=== PATIENT | female | born 1935 | race Caucasian/White ===

== ENCOUNTER 2021-04-06 14:55 | Inpatient (IN) | payer BC ==
[~2021-04-06] VITALS: Ht 172.7 cm; Wt 59.9 kg
[2021-04-06] MEDS ORDERED: SODIUM CHLORIDE 0.9% 1,000 ML IV ONE (16:45)
[2021-04-06] MEDS ORDERED: LORAZEPAM 2MG/ML CPJ IV ONE (17:00)
[2021-04-06 17:06] LABS: BASOPHILS % 0.7 % (0.0-2.0); EOSINOPHILS % 2.4 % (0.0-5.0); HEMATOCRIT. 39.4 % (36.0-48.0); MEAN CORPUSCULAR VOLUME 93.8 fL (81.0-99.0); MEAN PLATELET VOLUME 8.2 fl (7.4-10.4); MONOCYTES % 6.4 % (2.0-8.0); NEUTROPHILS % 71.5 % (40.0-76.0); PLATELET 244 x1000/uL (130-400); RED CELL DISTRIBUTION WIDTH 14.4 % (11.6-14.6)
[2021-04-06 17:11] LABS: CHLORIDE 110 mEq/L (98-107)
[2021-04-06] MEDS ORDERED: DOCUSATE SODIUM 100MG CAPSULE PO PRN (20:15)
[2021-04-06] MEDS ORDERED: ONDANSETRON HCL 4MG/2ML INJ IV PRN (20:15)
[2021-04-06] MEDS ORDERED: ACETAMINOPHEN 650MG SUPP PR PRN ×2 (20:15)
[2021-04-06] MEDS ORDERED: GUAIFENESIN 200MG/10ML SUGAR FREE UDC PO PRN (20:15)
[2021-04-06] MEDS ORDERED: MAGNESIUM/ALUMINUM HYDROXIDE/SIMETHICONE 30ML UDC PO PRN (20:15)
[2021-04-06] MEDS ORDERED: DIPHENHYDRAMINE 50MG/ML VIAL IV PRN (20:15)
[2021-04-06] MEDS ORDERED: ACETAMINOPHEN 325MG TABLET PO PRN ×2 (20:15)
[2021-04-06] MEDS ORDERED: IPRATROPIUM/ALBUTEROL 0.5-3(2.5)MG/3ML NEB HHN PRN (20:15)
[2021-04-07] VITALS (7 sets, daily range): BP systolic 119–179; BP diastolic 70–97
[2021-04-07] MEDS: HYDRALAZINE 20MG/ML VIAL IV PRN (01:33)
[2021-04-07] MEDS: CLONIDINE HCL 0.2MG/24HR PATCH TD SCH (03:57)
[2021-04-07 06:41] LABS: CHLORIDE 113 mEq/L (98-107)
[2021-04-07 06:48] LABS: LDL CHOLESTEROL 86 mg/dL (5-100)
[2021-04-07 06:50] LABS: CREATINE KINASE 146 IU/L (26-192); T4 FREE 1.25 ng/dL (0.76-1.46)
[2021-04-07 06:52] LABS: BASOPHILS % 0.3 % (0.0-2.0); HEMATOCRIT. 37.8 % (36.0-48.0); HEMOGLOBIN. 12.2 g/dL (12.0-16.0); LYMPHOCYTES % 19.1 % (20.0-50.0); MEAN CORPUSCULAR HEMOGLOBIN 30.9 pg (28.0-32.0); MEAN CORPUSCULAR VOLUME 95.5 fL (81.0-99.0); MEAN PLATELET VOLUME 8.2 fl (7.4-10.4); MONOCYTES % 6.2 % (2.0-8.0); NEUTROPHILS % 71.4 % (40.0-76.0); PLATELET 249 x1000/uL (130-400); RED BLOOD CELL COUNT 3.96 mill/uL (4.2-5.4); RED CELL DISTRIBUTION WIDTH 14.5 % (11.6-14.6)
[2021-04-07 06:53] LABS: HDL CHOLESTEROL 63 mg/dL (40-59)
[2021-04-07] MEDS ORDERED: CLONIDINE HCL 0.1MG/24HR PATCH TD SCH (09:00)
[2021-04-07] MEDS ORDERED: ESTR0.6264 VG (17:29)
[2021-04-07] MEDS ORDERED: OMEG-34 MT (17:29)
[2021-04-07] MEDS ORDERED: ASPI-1497 PO (17:29)
[2021-04-07] MEDS ORDERED: ACET160S2 PO (17:29)
[2021-04-07] MEDS ORDERED: LATA7.5D OP (17:58)
[2021-04-07] MEDS ORDERED: DORZ10DR8 EACHEYE (17:58)
[2021-04-07] MEDS ORDERED: AZOPT EACHEYE (17:58)
[2021-04-07] MEDS ORDERED: LIFI1DRO3 LEFTEYE (17:59)
[2021-04-07] MEDS ORDERED: BUDE6.9H INH (18:06)
[2021-04-07] MEDS ORDERED: INSU100I28 SQ (18:06)
[2021-04-07] MEDS ORDERED: MIDO2.5T MT (18:06)
[2021-04-07] MEDS ORDERED: TOPUD PO (18:06)
[2021-04-07] MEDS ORDERED: LEVE250T2 MT (18:06)
[2021-04-07] MEDS ORDERED: LOSA50TA41 MT (18:06)
[2021-04-07] MEDS ORDERED: THIA50TA12 MT (18:06)
[2021-04-07] MEDS: SODIUM CHLORIDE 0.45% 1,000 ML IV SCH (18:18)
[2021-04-07] MEDS: RISPERIDONE 0.5MG TABLET PO SCH (18:18)
[2021-04-08] VITALS: BP 144/76
[2021-04-08 04:00] VITALS: BP 152/72
[2021-04-08 08:00] VITALS: BP 145/88
[2021-04-08] MEDS: RISPERIDONE 0.5MG TABLET PO SCH ×2 (09:29→17:27)
[2021-04-08 12:00] VITALS: BP 131/71
[2021-04-08] MEDS ORDERED: RISPERIDONE 0.5MG TABLET PO SCH (12:45)
[2021-04-08] MEDS: SODIUM CHLORIDE 0.45% 1,000 ML IV SCH (15:57)
[2021-04-08 16:00] VITALS: BP 128/74
[2021-04-08] MEDS: MIDODRINE HCL 2.5MG TABLET PO SCH (17:00)
[2021-04-08] MEDS: DORZOLAMIDE 2% OPHTH 10 ML BOTTLE EACHEYE SCH (17:27)
[2021-04-08 20:00] VITALS: BP 157/93
[2021-04-08] MEDS: LEVETIRACETAM 250MG TABLET PO SCH (20:29)
[2021-04-09] VITALS (7 sets, daily range): BP systolic 122–180; BP diastolic 69–97
[2021-04-09] MEDS: CLONIDINE 0.1MG TABLET PO PRN (05:53)
[2021-04-09] MEDS ORDERED: ASPIRIN 81MG EC TABLET PO SCH (09:00)
[2021-04-09] MEDS: RISPERIDONE 0.5MG TABLET PO SCH (09:36)
[2021-04-09] MEDS: LEVETIRACETAM 250MG TABLET PO SCH ×2 (09:36→20:59)
[2021-04-09] MEDS: MIDODRINE HCL 2.5MG TABLET PO SCH ×3 (09:37→18:29)
[2021-04-09] MEDS: LOSARTAN POTASSIUM 50 MG TABLET PO SCH (09:38)
[2021-04-09] MEDS: DORZOLAMIDE 2% OPHTH 10 ML BOTTLE EACHEYE SCH ×3 (09:39→18:31)
[2021-04-09] MEDS: SODIUM CHLORIDE 0.45% 1,000 ML IV SCH (09:40)
[2021-04-09] MEDS: PANTOPRAZOLE SODIUM 40 MG/VIAL IV SCH (21:00)
[2021-04-10] VITALS: BP 121/70
[2021-04-10 04:00] VITALS: BP 111/59
[2021-04-10 06:30] LABS: PROTHROMBIN TIME 10.9 sec (9.6-11.0)
[2021-04-10 06:33] LABS: CHLORIDE 107 mEq/L (98-107)
[2021-04-10 06:53] LABS: BASOPHILS % 0.5 % (0.0-2.0); EOSINOPHILS % 3.7 % (0.0-5.0); HEMATOCRIT. 32.2 % (36.0-48.0); HEMOGLOBIN. 10.7 g/dL (12.0-16.0); LYMPHOCYTES % 13.4 % (20.0-50.0); MEAN CORPUSCULAR HEMOGLOBIN 31.4 pg (28.0-32.0); MEAN CORPUSCULAR VOLUME 94.3 fL (81.0-99.0); MEAN PLATELET VOLUME 8.4 fl (7.4-10.4); NEUTROPHILS % 74.4 % (40.0-76.0); PLATELET 172 x1000/uL (130-400); RED BLOOD CELL COUNT 3.41 mill/uL (4.2-5.4); RED CELL DISTRIBUTION WIDTH 14.1 % (11.6-14.6)
[2021-04-10 08:00] VITALS: BP 117/68
[2021-04-10] MEDS: LEVETIRACETAM 250MG TABLET PO SCH ×2 (09:05→21:37)
[2021-04-10] MEDS: LOSARTAN POTASSIUM 50 MG TABLET PO SCH (09:05)
[2021-04-10] MEDS: MIDODRINE HCL 2.5MG TABLET PO SCH ×3 (09:06→18:28)
[2021-04-10] MEDS: PANTOPRAZOLE SODIUM 40 MG/VIAL IV SCH ×2 (09:06→20:43)
[2021-04-10] MEDS: DORZOLAMIDE 2% OPHTH 10 ML BOTTLE EACHEYE SCH ×2 (09:07→13:00)
[2021-04-10] MEDS ORDERED: CEFAZOLIN 1000MG PREMIX 50 ML IV SCH (11:00)
[2021-04-10] MEDS ORDERED: FENTANYL CITRATE/PF 50MCG/ML 2ML VIAL ONE (11:03)
[2021-04-10] MEDS ORDERED: MIDAZOLAM HCL 5 MG/5 ML VIAL ONE (11:03)
[2021-04-10] MEDS ORDERED: MIDAZOLAM HCL 2 MG/2 ML VIAL IV PRN (11:41)
[2021-04-10 12:00] VITALS: BP_SYST 118; BP_SYST 126; BP_DIAS 64; BP_DIAS 69
[2021-04-10 16:00] VITALS: BP 122/69
[2021-04-10 20:00] VITALS: BP 130/89
[2021-04-11] VITALS (7 sets, daily range): BP systolic 126–152; BP diastolic 78–91
[2021-04-11] MEDS: METOCLOPRAMIDE HCL 10MG/2ML VIAL IV SCH ×4 (01:14→19:44)
[2021-04-11] MEDS: LEVETIRACETAM 250MG TABLET PO SCH ×2 (09:54→21:30)
[2021-04-11] MEDS: PANTOPRAZOLE SODIUM 40 MG/VIAL IV SCH ×2 (09:54→21:29)
[2021-04-11] MEDS: MIDODRINE HCL 2.5MG TABLET PO SCH ×3 (09:55→20:03)
[2021-04-11] MEDS: LOSARTAN POTASSIUM 50 MG TABLET PO SCH (09:55)
[2021-04-11] MEDS: DORZOLAMIDE 2% OPHTH 10 ML BOTTLE EACHEYE SCH ×2 (17:49→20:03)
[2021-04-11] MEDS: SODIUM CHLORIDE 0.45% 1,000 ML IV SCH ×2 (17:50→21:00)
[2021-04-12 04:00] VITALS: BP 124/74
[2021-04-12] MEDS: METOCLOPRAMIDE HCL 10MG/2ML VIAL IV SCH ×4 (06:55→18:17)
[2021-04-12 08:42] VITALS: BP 108/67
[2021-04-12] MEDS: LOSARTAN POTASSIUM 50 MG TABLET PO SCH (08:47)
[2021-04-12] MEDS: PANTOPRAZOLE SODIUM 40 MG/VIAL IV SCH ×2 (09:42→21:37)
[2021-04-12] MEDS: LEVETIRACETAM 250MG TABLET PO SCH ×2 (09:43→21:37)
[2021-04-12] MEDS: MIDODRINE HCL 2.5MG TABLET PO SCH ×3 (09:43→18:06)
[2021-04-12] MEDS: DORZOLAMIDE 2% OPHTH 10 ML BOTTLE EACHEYE SCH ×3 (09:47→18:07)
[2021-04-12 12:00] VITALS: BP 117/74
[2021-04-12 16:31] VITALS: BP 125/69
[2021-04-12] MEDS: SODIUM CHLORIDE 0.45% 1,000 ML IV SCH (18:07)
[2021-04-12 20:00] VITALS: BP 136/90
[2021-04-13] VITALS: BP 129/85
[2021-04-13 04:00] VITALS: BP 126/76
[2021-04-13 08:00] VITALS: BP 110/77
[2021-04-13] MEDS: MIDODRINE HCL 2.5MG TABLET PO SCH ×3 (08:49→16:48)
[2021-04-13] MEDS: DORZOLAMIDE 2% OPHTH 10 ML BOTTLE EACHEYE SCH ×3 (08:49→16:49)
[2021-04-13] MEDS: LEVETIRACETAM 250MG TABLET PO SCH ×2 (08:49→21:03)
[2021-04-13] MEDS: LOSARTAN POTASSIUM 50 MG TABLET PO SCH (08:49)
[2021-04-13] MEDS: FAMOTIDINE 20MG/2ML VIAL IV SCH (08:50)
[2021-04-13 12:00] VITALS: BP 131/74
[2021-04-13] MEDS: SODIUM CHLORIDE 0.45% 1,000 ML IV SCH (12:44)
[2021-04-13 16:00] VITALS: BP 128/75
[2021-04-13 20:00] VITALS: BP 117/79
[2021-04-14] VITALS: BP 122/64
[2021-04-14 04:00] VITALS: BP 133/75
[2021-04-14 08:00] VITALS: BP 121/72
[2021-04-14] MEDS: DORZOLAMIDE 2% OPHTH 10 ML BOTTLE EACHEYE SCH ×3 (09:02→16:55)
[2021-04-14] MEDS: MIDODRINE HCL 2.5MG TABLET PO SCH ×3 (09:03→16:55)
[2021-04-14] MEDS: SODIUM CHLORIDE 0.45% 1,000 ML IV SCH (09:03)
[2021-04-14] MEDS: FAMOTIDINE 20MG/2ML VIAL IV SCH (09:03)
[2021-04-14] MEDS: LEVETIRACETAM 250MG TABLET PO SCH ×2 (09:03→21:09)
[2021-04-14] MEDS: LOSARTAN POTASSIUM 50 MG TABLET PO SCH (09:03)
[2021-04-14] MEDS: CLONIDINE HCL 0.2MG/24HR PATCH TD SCH (09:04)
[2021-04-14 12:00] VITALS: BP 124/70
[2021-04-14 16:00] VITALS: BP 120/68
[2021-04-14 20:00] VITALS: BP 116/63
[2021-04-15] VITALS: BP 129/73
[2021-04-15 04:00] VITALS: BP 133/83
[2021-04-15] MEDS: SODIUM CHLORIDE 0.45% 1,000 ML IV SCH (04:52)
[2021-04-15 08:00] VITALS: BP 138/79
[2021-04-15] MEDS: LOSARTAN POTASSIUM 50 MG TABLET PO SCH (10:05)
[2021-04-15] MEDS: LEVETIRACETAM 250MG TABLET PO SCH ×2 (10:05→21:38)
[2021-04-15] MEDS: FAMOTIDINE 20MG TABLET PO SCH (10:05)
[2021-04-15] MEDS: MIDODRINE HCL 2.5MG TABLET PO SCH ×2 (10:05→15:26)
[2021-04-15 12:00] VITALS: BP 127/80
[2021-04-15 16:00] VITALS: BP 130/76
[2021-04-15 20:00] VITALS: BP 164/71
[2021-04-15] MEDS: HYDRALAZINE 20MG/ML VIAL IV PRN (21:38)
[2021-04-16] VITALS: BP 123/71
[2021-04-16] MEDS: SODIUM CHLORIDE 0.45% 1,000 ML IV SCH ×2 (03:08→16:15)
[2021-04-16 04:00] VITALS: BP 148/84
[2021-04-16] MEDS: LOSARTAN POTASSIUM 50 MG TABLET PO SCH (09:29)
[2021-04-16] MEDS: LEVETIRACETAM 250MG TABLET PO SCH ×2 (09:29→20:45)
[2021-04-16] MEDS: FAMOTIDINE 20MG TABLET PO SCH (09:30)
[2021-04-16 20:00] VITALS: BP 129/83
[2021-04-17] VITALS: BP 112/64
[2021-04-17 04:00] VITALS: BP 107/62
[2021-04-17 08:00] VITALS: BP 113/56
[2021-04-17] MEDS: FAMOTIDINE 20MG TABLET PO SCH (09:04)
[2021-04-17] MEDS: LOSARTAN POTASSIUM 50 MG TABLET PO SCH (09:04)
[2021-04-17] MEDS: LEVETIRACETAM 250MG TABLET PO SCH ×2 (09:04→21:15)
[2021-04-17 12:00] VITALS: BP 129/70
[2021-04-17 16:00] VITALS: BP 140/64
[2021-04-17] MEDS: SODIUM CHLORIDE 0.45% 1,000 ML IV SCH (17:09)
[2021-04-17 17:54] LABS: BASOPHILS % 0.5 % (0.0-2.0); EOSINOPHILS % 5.9 % (0.0-5.0); HEMATOCRIT. 32.3 % (36.0-48.0); MEAN CORPUSCULAR HEMOGLOBIN 31.9 pg (28.0-32.0); MEAN CORPUSCULAR VOLUME 93.4 fL (81.0-99.0); MEAN PLATELET VOLUME 7.7 fl (7.4-10.4); MONOCYTES % 14.4 % (2.0-8.0); NEUTROPHILS % 60.2 % (40.0-76.0); PLATELET 230 x1000/uL (130-400); RED BLOOD CELL COUNT 3.45 mill/uL (4.2-5.4); RED CELL DISTRIBUTION WIDTH 14.5 % (11.6-14.6)
[2021-04-17 18:06] LABS: CHLORIDE 102 mEq/L (98-107)
[2021-04-17 20:00] VITALS: BP 134/80
[2021-04-18 04:00] VITALS: BP 112/62
[2021-04-18 08:00] VITALS: BP 122/66
[2021-04-18] MEDS: FAMOTIDINE 20MG TABLET PO SCH (08:46)
[2021-04-18] MEDS: MIDODRINE HCL 2.5MG TABLET PO SCH ×3 (08:46→17:04)
[2021-04-18] MEDS: LOSARTAN POTASSIUM 50 MG TABLET PO SCH (08:46)
[2021-04-18] MEDS: DORZOLAMIDE 2% OPHTH 10 ML BOTTLE EACHEYE SCH ×3 (08:46→17:04)
[2021-04-18] MEDS: LEVETIRACETAM 250MG TABLET PO SCH ×2 (08:47→20:44)
[2021-04-18 12:00] VITALS: BP 118/85
[2021-04-18] MEDS: SODIUM CHLORIDE 0.45% 1,000 ML IV SCH (12:54)
[2021-04-18 16:00] VITALS: BP 147/84
[2021-04-18 20:00] VITALS: BP 122/68
[2021-04-19] VITALS: BP 114/58
[2021-04-19 04:00] VITALS: BP 119/65
[2021-04-19 08:00] VITALS: BP 99/72
[2021-04-19] MEDS: LOSARTAN POTASSIUM 50 MG TABLET PO SCH (08:34)
[2021-04-19] MEDS: FAMOTIDINE 20MG TABLET PO SCH (08:49)
[2021-04-19] MEDS: MIDODRINE HCL 2.5MG TABLET PO SCH ×3 (08:49→18:41)
[2021-04-19] MEDS: LEVETIRACETAM 250MG TABLET PO SCH ×2 (08:50→21:32)
[2021-04-19] MEDS: SODIUM CHLORIDE 0.45% 1,000 ML IV SCH (08:51)
[2021-04-19 12:00] VITALS: BP 104/68
[2021-04-19 16:00] VITALS: BP 145/90
[2021-04-19 21:37] VITALS: BP 108/62
[2021-04-20] VITALS: BP 134/72
[2021-04-20] MEDS: SODIUM CHLORIDE 0.45% 1,000 ML IV SCH (02:51)
[2021-04-20 04:00] VITALS: BP 122/62
[2021-04-20 08:00] VITALS: BP 138/72
[2021-04-20] MEDS: FAMOTIDINE 20MG TABLET PO SCH (09:13)
[2021-04-20] MEDS: LOSARTAN POTASSIUM 50 MG TABLET PO SCH (09:14)
[2021-04-20] MEDS: LEVETIRACETAM 250MG TABLET PO SCH ×2 (09:14→20:40)
[2021-04-20] MEDS: MIDODRINE HCL 2.5MG TABLET PO SCH ×3 (09:14→17:00)
[2021-04-20 12:00] VITALS: BP 139/78
[2021-04-20 16:00] VITALS: BP 155/85
[2021-04-20 20:00] VITALS: BP 147/84
[2021-04-21] VITALS: BP 151/81
[2021-04-21] MEDS: SODIUM CHLORIDE 0.45% 1,000 ML IV SCH ×2 (00:41→20:20)
[2021-04-21 04:00] VITALS: BP 116/78
[2021-04-21 08:00] VITALS: BP 132/84
[2021-04-21] MEDS: MIDODRINE HCL 2.5MG TABLET PO SCH ×3 (09:00→17:00)
[2021-04-21] MEDS: LEVETIRACETAM 250MG TABLET PO SCH ×2 (09:10→20:22)
[2021-04-21] MEDS: FAMOTIDINE 20MG TABLET PO SCH (09:10)
[2021-04-21] MEDS: CLONIDINE HCL 0.2MG/24HR PATCH TD SCH (09:11)
[2021-04-21] MEDS: DORZOLAMIDE 2% OPHTH 10 ML BOTTLE EACHEYE SCH ×3 (09:12→17:00)
[2021-04-21] MEDS: LOSARTAN POTASSIUM 50 MG TABLET PO SCH (09:12)
[2021-04-21 12:00] VITALS: BP 158/89
[2021-04-21 16:00] VITALS: BP 148/91
[2021-04-21 20:00] VITALS: BP 110/65
[2021-04-22] VITALS: BP 116/69
[2021-04-22 04:00] VITALS: BP 120/71
[2021-04-22 08:00] VITALS: BP 131/80
[2021-04-22] MEDS: MIDODRINE HCL 2.5MG TABLET PO SCH ×3 (09:00→16:13)
[2021-04-22] MEDS: FAMOTIDINE 20MG TABLET PO SCH (09:35)
[2021-04-22] MEDS: LEVETIRACETAM 250MG TABLET PO SCH ×2 (09:35→21:00)
[2021-04-22] MEDS: DORZOLAMIDE 2% OPHTH 10 ML BOTTLE EACHEYE SCH ×3 (09:35→16:13)
[2021-04-22] MEDS: LOSARTAN POTASSIUM 50 MG TABLET PO SCH (09:36)
[2021-04-22 12:00] VITALS: BP 169/70
[2021-04-22 16:00] VITALS: BP 150/71
[2021-04-22] MEDS: SODIUM CHLORIDE 0.45% 1,000 ML IV SCH (16:13)
[2021-04-22 20:00] VITALS: BP 117/75
[2021-04-23] VITALS (7 sets, daily range): BP systolic 128–170; BP diastolic 54–86
[2021-04-23] MEDS: LOSARTAN POTASSIUM 50 MG TABLET PO SCH (11:02)
[2021-04-23] MEDS: LEVETIRACETAM 250MG TABLET PO SCH ×2 (11:03→21:33)
[2021-04-23] MEDS: FAMOTIDINE 20MG TABLET PO SCH (11:03)
[2021-04-23] MEDS: MIDODRINE HCL 2.5MG TABLET PO SCH ×3 (11:04→18:00)
[2021-04-23] MEDS: DORZOLAMIDE 2% OPHTH 10 ML BOTTLE EACHEYE SCH ×3 (11:06→18:00)
[2021-04-23] MEDS: SODIUM CHLORIDE 0.45% 1,000 ML IV SCH (13:07)
[2021-04-23 16:55] LABS: BASOPHILS % 0.7 % (0.0-2.0); EOSINOPHILS % 4.8 % (0.0-5.0); HEMATOCRIT. 31.6 % (36.0-48.0); HEMOGLOBIN. 10.5 g/dL (12.0-16.0); LYMPHOCYTES % 13.8 % (20.0-50.0); MEAN CORPUSCULAR HEMOGLOBIN 31.4 pg (28.0-32.0); MEAN CORPUSCULAR VOLUME 94.4 fL (81.0-99.0); MEAN PLATELET VOLUME 6.8 fl (7.4-10.4); MONOCYTES % 7.7 % (2.0-8.0); PLATELET 365 x1000/uL (130-400); RED BLOOD CELL COUNT 3.35 mill/uL (4.2-5.4); RED CELL DISTRIBUTION WIDTH 14.7 % (11.6-14.6)
[2021-04-23 17:20] LABS: CHLORIDE 104 mEq/L (98-107)
[2021-04-24] VITALS: BP 138/88
[2021-04-24 04:00] VITALS: BP 148/98
[2021-04-24] MEDS: SODIUM CHLORIDE 0.45% 1,000 ML IV SCH ×2 (04:00→22:00)
[2021-04-24 08:00] VITALS: BP 158/74
[2021-04-24] MEDS: MIDODRINE HCL 2.5MG TABLET PO SCH ×3 (09:34→17:00)
[2021-04-24] MEDS: FAMOTIDINE 20MG TABLET PO SCH (09:34)
[2021-04-24] MEDS: LOSARTAN POTASSIUM 50 MG TABLET PO SCH (09:35)
[2021-04-24] MEDS: DORZOLAMIDE 2% OPHTH 10 ML BOTTLE EACHEYE SCH ×3 (09:35→17:13)
[2021-04-24] MEDS: LEVETIRACETAM 250MG TABLET PO SCH ×2 (09:35→20:45)
[2021-04-24 12:00] VITALS: BP_SYST 107; BP_SYST 116; BP_DIAS 61; BP_DIAS 63
[2021-04-24 16:00] VITALS: BP 164/91
[2021-04-24] MEDS: HYDRALAZINE 20MG/ML VIAL IV PRN (17:13)
[2021-04-24 20:00] VITALS: BP 114/68
[2021-04-25] VITALS: BP 115/70
[2021-04-25 04:00] VITALS: BP 133/72
[2021-04-25 08:00] VITALS: BP 133/79
[2021-04-25] MEDS: FAMOTIDINE 20MG TABLET PO SCH (10:11)
[2021-04-25] MEDS: MIDODRINE HCL 2.5MG TABLET PO SCH ×2 (10:11→13:00)
[2021-04-25] MEDS: LEVETIRACETAM 250MG TABLET PO SCH ×2 (10:12→21:15)
[2021-04-25] MEDS: LOSARTAN POTASSIUM 50 MG TABLET PO SCH (10:12)
[2021-04-25] MEDS: DORZOLAMIDE 2% OPHTH 10 ML BOTTLE EACHEYE SCH ×2 (10:12→14:06)
[2021-04-25 12:00] VITALS: BP 143/85
[2021-04-25 16:00] VITALS: BP 151/91
[2021-04-25 20:00] VITALS: BP 164/90
[2021-04-26] VITALS: BP 130/79
[2021-04-26] MEDS: SODIUM CHLORIDE 0.45% 1,000 ML IV SCH (01:55)
[2021-04-26 04:00] VITALS: BP 117/96
[2021-04-26 08:00] VITALS: BP 169/94
[2021-04-26] MEDS: LOSARTAN POTASSIUM 50 MG TABLET PO SCH (08:47)
[2021-04-26] MEDS: FAMOTIDINE 20MG TABLET PO SCH (08:47)
[2021-04-26] MEDS: LEVETIRACETAM 250MG TABLET PO SCH ×2 (08:47→20:56)
[2021-04-26] MEDS: MIDODRINE HCL 2.5MG TABLET PO SCH ×3 (08:51→18:52)
[2021-04-26] MEDS: DORZOLAMIDE 2% OPHTH 10 ML BOTTLE EACHEYE SCH ×3 (10:32→18:50)
[2021-04-26 12:00] VITALS: BP 149/89
[2021-04-26 16:00] VITALS: BP 122/59
[2021-04-26 20:00] VITALS: BP 152/89
[2021-04-27 00:49] VITALS: BP 149/89
[2021-04-27 04:00] VITALS: BP 149/88
[2021-04-27] MEDS: SODIUM CHLORIDE 0.45% 1,000 ML IV SCH ×2 (06:50→18:12)
[2021-04-27 08:00] VITALS: BP 129/77
[2021-04-27] MEDS: FAMOTIDINE 20MG TABLET PO SCH (09:38)
[2021-04-27] MEDS: LOSARTAN POTASSIUM 50 MG TABLET PO SCH (09:38)
[2021-04-27] MEDS: LEVETIRACETAM 250MG TABLET PO SCH ×2 (09:38→22:07)
[2021-04-27] MEDS: DORZOLAMIDE 2% OPHTH 10 ML BOTTLE EACHEYE SCH ×3 (09:38→18:12)
[2021-04-27] MEDS: MIDODRINE HCL 2.5MG TABLET PO SCH ×3 (09:38→17:00)
[2021-04-27 12:00] VITALS: BP 133/70
[2021-04-27] MEDS: XIIDRA 5% LEFTEYE SCH ×2 (15:41→22:20)
[2021-04-27 16:00] VITALS: BP 151/88
[2021-04-27] MEDS ORDERED: LEVETIRACETAM 250MG TABLET PO SCH (21:00)
[2021-04-27] MEDS: MEMANTINE HCL 10MG TABLET PO SCH (22:07)
[2021-04-27] MEDS: LATANOPROST 0.005% OPHTH DROPS 2.5ML BOTHEYE SCH (22:07)
[2021-04-28] VITALS: BP 112/63
[2021-04-28 04:00] VITALS: BP 97/66
[2021-04-28] MEDS: XIIDRA 5% LEFTEYE SCH ×2 (07:43→21:00)
[2021-04-28 08:00] VITALS: BP 117/70
[2021-04-28] MEDS: EZETIMIBE 10MG TABLET PO SCH (10:05)
[2021-04-28] MEDS: LEVETIRACETAM 250MG TABLET PO SCH ×2 (10:05→20:29)
[2021-04-28] MEDS: LOSARTAN POTASSIUM 50 MG TABLET PO SCH (10:05)
[2021-04-28] MEDS: DORZOLAMIDE 2% OPHTH 10 ML BOTTLE EACHEYE SCH ×3 (10:07→19:38)
[2021-04-28] MEDS: LATANOPROST 0.005% OPHTH DROPS 2.5ML BOTHEYE SCH ×2 (10:07→19:39)
[2021-04-28] MEDS: MIDODRINE HCL 2.5MG TABLET PO SCH ×3 (10:07→19:41)
[2021-04-28] MEDS: FAMOTIDINE 20MG TABLET PO SCH (10:07)
[2021-04-28] MEDS: MEMANTINE HCL 10MG TABLET PO SCH ×2 (10:07→20:29)
[2021-04-28] MEDS: CLONIDINE HCL 0.2MG/24HR PATCH TD SCH (10:10)
[2021-04-28 12:00] VITALS: BP 139/86
[2021-04-28] MEDS: SODIUM CHLORIDE 0.45% 1,000 ML IV SCH (13:00)
[2021-04-28 16:00] VITALS: BP 148/94
[2021-04-28 20:00] VITALS: BP 148/66
[2021-04-29] VITALS: BP 134/85
[2021-04-29 04:00] VITALS: BP 127/72
[2021-04-29 08:00] VITALS: BP 136/70
[2021-04-29] MEDS: LEVETIRACETAM 250MG TABLET PO SCH ×2 (09:53→20:21)
[2021-04-29] MEDS: XIIDRA 5% LEFTEYE SCH ×2 (09:53→20:22)
[2021-04-29] MEDS: DORZOLAMIDE 2% OPHTH 10 ML BOTTLE EACHEYE SCH ×3 (09:53→17:50)
[2021-04-29] MEDS: MIDODRINE HCL 2.5MG TABLET PO SCH ×3 (09:54→17:50)
[2021-04-29] MEDS: LOSARTAN POTASSIUM 50 MG TABLET PO SCH (09:54)
[2021-04-29] MEDS: MEMANTINE HCL 10MG TABLET PO SCH ×2 (09:54→20:21)
[2021-04-29] MEDS: FAMOTIDINE 20MG TABLET PO SCH (09:54)
[2021-04-29] MEDS: EZETIMIBE 10MG TABLET PO SCH (09:54)
[2021-04-29 12:00] VITALS: BP 139/70
[2021-04-29 16:00] VITALS: BP 159/78
[2021-04-29] MEDS: SODIUM CHLORIDE 0.45% 1,000 ML IV SCH (18:00)
[2021-04-29 20:00] VITALS: BP 108/65
[2021-04-29] MEDS: LATANOPROST 0.005% OPHTH DROPS 2.5ML BOTHEYE SCH (20:23)
[2021-04-30] VITALS: BP 130/86
[2021-04-30 04:00] VITALS: BP 149/82
[2021-04-30 08:00] VITALS: BP 133/74
[2021-04-30] MEDS: FAMOTIDINE 20MG TABLET PO SCH (08:18)
[2021-04-30] MEDS: LEVETIRACETAM 250MG TABLET PO SCH ×2 (08:18→20:25)
[2021-04-30] MEDS: EZETIMIBE 10MG TABLET PO SCH (08:18)
[2021-04-30] MEDS: MIDODRINE HCL 2.5MG TABLET PO SCH ×3 (08:19→17:00)
[2021-04-30] MEDS: MEMANTINE HCL 10MG TABLET PO SCH ×2 (08:19→20:25)
[2021-04-30] MEDS: LOSARTAN POTASSIUM 50 MG TABLET PO SCH (08:19)
[2021-04-30] MEDS: DORZOLAMIDE 2% OPHTH 10 ML BOTTLE EACHEYE SCH ×3 (08:22→16:47)
[2021-04-30] MEDS: XIIDRA 5% LEFTEYE SCH ×2 (08:26→20:26)
[2021-04-30 12:00] VITALS: BP 146/84
[2021-04-30 16:00] VITALS: BP 143/73
[2021-04-30] MEDS: SODIUM CHLORIDE 0.45% 1,000 ML IV SCH (16:46)
[2021-04-30 20:00] VITALS: BP 123/84
[2021-04-30] MEDS: LATANOPROST 0.005% OPHTH DROPS 2.5ML BOTHEYE SCH (20:25)
[2021-05-01] VITALS: BP 104/64
[2021-05-01] MEDS: SODIUM CHLORIDE 0.45% 1,000 ML IV SCH ×2 (01:00→21:07)
[2021-05-01 04:00] VITALS: BP 122/69
[2021-05-01 08:00] VITALS: BP 144/72
[2021-05-01] MEDS: LOSARTAN POTASSIUM 50 MG TABLET PO SCH (08:34)
[2021-05-01] MEDS: LEVETIRACETAM 250MG TABLET PO SCH ×2 (08:35→21:07)
[2021-05-01] MEDS: FAMOTIDINE 20MG TABLET PO SCH (08:35)
[2021-05-01] MEDS: EZETIMIBE 10MG TABLET PO SCH (08:35)
[2021-05-01] MEDS: DORZOLAMIDE 2% OPHTH 10 ML BOTTLE EACHEYE SCH ×3 (08:38→17:44)
[2021-05-01] MEDS: MEMANTINE HCL 10MG TABLET PO SCH ×2 (08:39→21:07)
[2021-05-01] MEDS: XIIDRA 5% LEFTEYE SCH ×2 (08:39→21:07)
[2021-05-01] MEDS: MIDODRINE HCL 2.5MG TABLET PO SCH ×3 (08:40→17:00)
[2021-05-01 12:00] VITALS: BP 152/90
[2021-05-01 16:00] VITALS: BP 139/96
[2021-05-01 20:00] VITALS: BP 124/83
[2021-05-01] MEDS: LATANOPROST 0.005% OPHTH DROPS 2.5ML BOTHEYE SCH (21:06)
[2021-05-02] VITALS: BP 103/62
[2021-05-02 04:00] VITALS: BP 107/60
[2021-05-02 08:00] VITALS: BP 115/85
[2021-05-02] MEDS: LOSARTAN POTASSIUM 50 MG TABLET PO SCH (09:00)
[2021-05-02] MEDS: DORZOLAMIDE 2% OPHTH 10 ML BOTTLE EACHEYE SCH ×2 (09:00→19:49)
[2021-05-02] MEDS: MIDODRINE HCL 2.5MG TABLET PO SCH ×3 (09:00→19:49)
[2021-05-02] MEDS: XIIDRA 5% LEFTEYE SCH ×2 (09:00→21:44)
[2021-05-02] MEDS: MEMANTINE HCL 10MG TABLET PO SCH ×2 (10:07→21:43)
[2021-05-02] MEDS: LEVETIRACETAM 250MG TABLET PO SCH ×2 (10:08→21:43)
[2021-05-02] MEDS: EZETIMIBE 10MG TABLET PO SCH (10:08)
[2021-05-02] MEDS: FAMOTIDINE 20MG TABLET PO SCH (10:08)
[2021-05-02 12:00] VITALS: BP 136/82
[2021-05-02 16:00] VITALS: BP 109/79
[2021-05-02] MEDS: SODIUM CHLORIDE 0.45% 1,000 ML IV SCH (17:00)
[2021-05-02 20:00] VITALS: BP 161/87
[2021-05-02] MEDS: LATANOPROST 0.005% OPHTH DROPS 2.5ML BOTHEYE SCH (21:44)
[2021-05-03] VITALS: BP 149/88
[2021-05-03 04:00] VITALS: BP 154/94
[2021-05-03 08:00] VITALS: BP 163/91
[2021-05-03] MEDS: MIDODRINE HCL 2.5MG TABLET PO SCH ×3 (09:00→16:59)
[2021-05-03] MEDS: LEVETIRACETAM 250MG TABLET PO SCH ×2 (09:22→21:43)
[2021-05-03] MEDS: EZETIMIBE 10MG TABLET PO SCH (09:22)
[2021-05-03] MEDS: FAMOTIDINE 20MG TABLET PO SCH (09:22)
[2021-05-03] MEDS: MEMANTINE HCL 10MG TABLET PO SCH ×2 (09:22→21:43)
[2021-05-03] MEDS: LOSARTAN POTASSIUM 50 MG TABLET PO SCH (09:22)
[2021-05-03] MEDS: DORZOLAMIDE 2% OPHTH 10 ML BOTTLE EACHEYE SCH ×3 (09:24→16:59)
[2021-05-03] MEDS: XIIDRA 5% LEFTEYE SCH ×2 (09:24→21:44)
[2021-05-03] MEDS: CLONIDINE 0.1MG TABLET PO PRN (09:33)
[2021-05-03 12:00] VITALS: BP 124/67
[2021-05-03] MEDS: SODIUM CHLORIDE 0.45% 1,000 ML IV SCH (12:10)
[2021-05-03 16:00] VITALS: BP 106/59
[2021-05-03 20:00] VITALS: BP 107/62
[2021-05-03] MEDS: LATANOPROST 0.005% OPHTH DROPS 2.5ML BOTHEYE SCH (21:45)
[2021-05-04 04:00] VITALS: BP 128/80
[2021-05-04 08:00] VITALS: BP 125/77
[2021-05-04] MEDS: MEMANTINE HCL 10MG TABLET PO SCH (09:00)
[2021-05-04] MEDS: DORZOLAMIDE 2% OPHTH 10 ML BOTTLE EACHEYE SCH (09:00)
[2021-05-04] MEDS: MIDODRINE HCL 2.5MG TABLET PO SCH (09:55)
[2021-05-04] MEDS: LOSARTAN POTASSIUM 50 MG TABLET PO SCH (09:55)
[2021-05-04] MEDS: LEVETIRACETAM 250MG TABLET PO SCH (09:55)
[2021-05-04] MEDS: FAMOTIDINE 20MG TABLET PO SCH (09:55)
[2021-05-04] MEDS: EZETIMIBE 10MG TABLET PO SCH (09:55)
[2021-05-04] MEDS: XIIDRA 5% LEFTEYE SCH (10:02)
[2021-05-04 12:00] VITALS: BP 139/81
[2021-05-04] MEDS ORDERED: FAMO20TA8 PO (12:15)
[2021-05-04] MEDS ORDERED: MEMA10TA2 PO (12:15)
[2021-05-04] MEDS ORDERED: LOSA50TA3 PO (12:15)
[2021-05-04] MEDS ORDERED: EZET10TA13 PO (12:15)
[2021-05-04 12:41] VITALS: BP 139/81
== END 2021-05-04 15:12 | DRG 641 ==
LOC: ER 14:55 → 8WST 19:11 → ENRESERV 23:15 → 8WST 04-09 10:57
PROVIDERS: ADMIT Specialist; ATTEND Specialist
PROC: 0DH63UZ Insertion of Feeding Device into Stomach, Percutaneous Approach (ICD-10-PCS; principal; 2021-04-10)
PROC: 0DB78ZX Excision of Stomach, Pylorus, Via Natural or Artificial Opening Endoscopic, Diagnostic (ICD-10-PCS; 2021-04-10)
DX: R62.7 Adult failure to thrive (principal); E44.1 Mild protein-calorie malnutrition; R13.12 Dysphagia, oropharyngeal phase; D72.829 Elevated white blood cell count, unspecified; E87.5 Hyperkalemia; E87.8 Other disorders of electrolyte and fluid balance, not elsewhere classified; F03.90 Unspecified dementia, unspecified severity, without behavioral disturbance, psychotic disturbance, mood disturbance, and anxiety; G40.909 Epilepsy, unspecified, not intractable, without status epilepticus; I10 Essential (primary) hypertension; J45.909 Unspecified asthma, uncomplicated; D64.9 Anemia, unspecified; K29.60 Other gastritis without bleeding; Z20.822 Contact with and (suspected) exposure to COVID-19; K21.9 Gastro-esophageal reflux disease without esophagitis; Z79.51 Long term (current) use of inhaled steroids; Z79.899 Other long term (current) drug therapy; Z86.73 Personal history of transient ischemic attack (TIA), and cerebral infarction without residual deficits; Z87.440 Personal history of urinary (tract) infections; Z91.81 History of falling; Z78.1 Physical restraint status; Z68.20 Body mass index [BMI] 20.0-20.9, adult
CPT/HCPCS: 36415; 71045; 80048; 80053; 80061; 82040; 82140; 82550; 82962; 83735; 83880; 84134; 84439; 84443; 84484; 85025; 87426; 88305; 88312; 88313; 92610; 93005; 97162; 97166; 97530; 99285; C1893; C9113; J0360; J0690; J1200; J2060; J2250; J2765; J3010; J3490; J7030